=== PATIENT | female | born 1975 | race African-American/Black ===

== ENCOUNTER 2025-07-14 21:18 | Emergency (ER) | payer MEDICAID ==
[~2025-07-14] VITALS: Ht 170.2 cm; Wt 65.0 kg
[2025-07-14 21:20] VITALS: TEMP 37; O2SAT 99
[2025-07-14] MEDS ORDERED: BO1 TP (22:20)
[2025-07-14] MEDS ORDERED: IBUP-1455 MT (22:20)
[2025-07-14] MEDS: TETANUS, DIPHTHERIA, PERTUSSIS VAC/PF 0.5ML (>10YR OLD) IM ONE (22:24)
[2025-07-14] MEDS: BACITRACIN ZINC OINT UDPKT TOP ONE (22:24)
[2025-07-14 22:25] VITALS: BP 141/92; PULSE 85; RESP 14
[2025-07-14] MEDS: IBUPROFEN 600MG TABLET PO ONE (22:25)
[2025-07-14] MEDS: LIDOCAINE HCL 1% 20ML VIAL INFIL ONE (22:34)
== END 2025-07-14 22:40 | disposition home or self-care (01) ==
LOC: ER 21:18
DX: S81.811A Laceration without foreign body, right lower leg, initial encounter (principal); I10 Essential (primary) hypertension; Z59.01 Sheltered homelessness; W45.8XXA Other foreign body or object entering through skin, initial encounter; Y93.89 Activity, other specified; Y92.89 Other specified places as the place of occurrence of the external cause; Y99.8 Other external cause status
CPT/HCPCS: 12002; 90471; 90715; 99283

== ENCOUNTER 2025-07-30 08:36 | Emergency (ER) | payer MEDICAID ==
[~2025-07-30] VITALS: Ht 170.2 cm; Wt 59.0 kg
[~2025-07-30 08:36] MED LIST: BO1 TP; IBUP-1455 MT
[2025-07-30 08:43] VITALS: TEMP 36.8; O2SAT 98
[2025-07-30] MEDS ORDERED: BO1 TP (09:38)
[2025-07-30] MEDS ORDERED: IBUP-1455 MT (09:38)
[2025-07-30 09:45] VITALS: BP 142/99; PULSE 88; RESP 18; O2SAT 100
== END 2025-07-30 09:50 | disposition home or self-care (01) ==
LOC: ER 08:44
DX: S81.811D Laceration without foreign body, right lower leg, subsequent encounter (principal); X58.XXXD Exposure to other specified factors, subsequent encounter
CPT/HCPCS: 99283